=== PATIENT | male | born 1970 | race African-American/Black ===

== ENCOUNTER 2021-01-12 12:27 | Emergency (ER) | payer BC ==
[~2021-01-12] VITALS: Ht 175.3 cm; Wt 100.0 kg
[~2021-01-12 12:27] MED LIST: AMOXICILLIN500 MG PO; DENIES CURRENT MED; FLEXERIL OR; NO; ULTRAM50 M1 PO
[2021-01-12] MEDS ORDERED: OFLOXACIN0.3 % OS (13:22)
[2021-01-12 13:41] VITALS: BP 150/86
== END 2021-01-12 13:44 | disposition home or self-care (01) | DRG 125 ==
LOC: ED 12:27
DX: H10.9 Unspecified conjunctivitis (principal); I10 Essential (primary) hypertension